=== PATIENT | female | born 1970 | race African-American/Black ===

== ENCOUNTER 2021-03-22 20:41 | Inpatient (IN) | payer MEDICAID ==
[~2021-03-22] VITALS: Ht 167.6 cm; Wt 71.2 kg
[2021-03-22] MEDS ORDERED: LOSA50TA37 PO (20:59)
[2021-03-22] MEDS ORDERED: QUET200T PO (20:59)
[2021-03-22 21:04] LABS: BASOPHILS % (AUTO) 1.1 % (0.0-2.0); EOSINOPHILS % (AUTO) 1.8 % (1.0-6.0); HEMATOCRIT 38.4 % (36-46); HEMOGLOBIN 12.6 g/dL (12.0-16.0); LYMPHOCYTES # (AUTO) 2.6 K/uL (1.0-4.8); LYMPHOCYTES % (AUTO) 35.4 % (22.0-44.0); MEAN CORPUSCULAR VOLUME 85 fL (80-100); MONOCYTES # (AUTO) 0.4 K/uL (0.1-1.0); MONOCYTES % (AUTO) 5.7 % (2.0-9.0); NEUTROPHILS # (AUTO) 4.1 K/uL (1.8-7.7); PLATELET COUNT (AUTO) 373 K/uL (150-450); RED BLOOD CELL COUNT(AUTO) 4.51 MIL/uL (4.00-5.20); RED CELL DISTRIBUTION WIDTH 16.7 % (11.5-14.5)
[2021-03-22 21:14] LABS: ANION GAP 12 mmol/L (8-16); CARBON DIOXIDE 26 mmol/L (22-29); CHLORIDE 105 mmol/L (98-107); CREATININE 0.74 mg/dL (0.60-1.30); GLOMERULAR FILTR. RATE CALC > 60 mL/min (>60); GLUCOSE,RANDOM 73 mg/dL (70-110); POTASSIUM 3.4 mmol/L (3.5-5.1); SODIUM SERUM 143 mmol/L (136-145); UREA NITROGEN, BLOOD 15 mg/dL (7-18)
[2021-03-22 21:16] LABS: PROTHROMBIN TIME 10.6 SEC (9.4-11.6)
[2021-03-22 21:16] LABS: COVID AG,FIA SOURCE NASOPHARYNGEAL
[2021-03-22 21:25] LABS: ALANINE AMINOTRANSFERASE 30 U/L (12-78); ALBUMIN 3.8 g/dL (3.4-5.0); ALKALINE PHOSPHATASE 151 U/L (46-116); ASPARTATE AMINOTRANSFERASE 28 U/L (15-37); BILIRUBIN,TOTAL 0.3 mg/dL (0.1-1.0); HCG,QUANTITATIVE < 1 mIU/mL (0-6); TOTAL PROTEIN, SERUM 7.9 g/dL (6.4-8.2)
[2021-03-22] MEDS ORDERED: LORazepam 1 MG TABLET PO ONE (21:30)
[2021-03-22 21:31] LABS: SALICYLATE 14.5 mg/dL (2.8-20.0)
[2021-03-22 21:38] LABS: ACETAMINOPHEN < 2 mcg/mL (10-30)
[2021-03-23] MEDS: ZOLPIDEM TARTRATE 10 MG TABLET PO PRN ×2 (00:28→00:29)
[2021-03-23 01:00] VITALS: BP 143/87
[2021-03-23] MEDS ORDERED: MAG HYDROX/AL HYDROX/SIMETH ES 30 ML SUSPENSION UDCUP PO PRN (06:30)
[2021-03-23] MEDS ORDERED: ALBUTEROL SULFATE HFA 90 MCG/PUFF 8 GM INHALER IH PRN (06:30)
[2021-03-23] MEDS ORDERED: PETROLATUM,WHITE 28 GM JELLY TP PRN (06:30)
[2021-03-23] MEDS ORDERED: MAGNESIUM HYDROXIDE SUSPENSION 30 ML UDCUP PO PRN (06:30)
[2021-03-23] MEDS ORDERED: OMEPRAZOLE 20 MG CAPSULE PO PRN (06:30)
[2021-03-23] MEDS ORDERED: BENZOCAINE/MENTHOL LOZENGE PO PRN (06:30)
[2021-03-23] MEDS ORDERED: DOCUSATE SODIUM 100 MG CAPSULE PO PRN (06:30)
[2021-03-23] MEDS ORDERED: ONDANSETRON HCL 4 MG TABLET PO PRN (06:30)
[2021-03-23] MEDS ORDERED: CloNIDine HCL 0.1 MG TABLET PO PRN (06:30)
[2021-03-23] MEDS ORDERED: LOPERAMIDE HCL 2 MG CAPSULE PO PRN (06:30)
[2021-03-23] MEDS ORDERED: POTASSIUM CHLORIDE 20 MEQ ER TABLET PO ONE (06:30)
[2021-03-23] MEDS ORDERED: BACITRACIN 28 GM OINTMENT TP PRN (06:30)
[2021-03-23 07:07] LABS: CHOL/HDL RATIO 2.2 (3.9-5.7)
[2021-03-23 08:28] VITALS: BP 148/88
[2021-03-23] MEDS: IBUPROFEN 600 MG TABLET PO PRN (08:30)
[2021-03-23] MEDS: LOSARTAN POTASSIUM 50 MG TABLET PO SCH (09:13)
[2021-03-23] MEDS: HALOPERIDOL 5 MG TABLET PO PRN (09:13)
[2021-03-23] MEDS: LORazepam 2 MG TABLET PO PRN (09:13)
[2021-03-23 17:09] VITALS: BP 117/64
[2021-03-23] MEDS: QUEtiapine FUMARATE 300 MG TABLET PO SCH (20:30)
[2021-03-23] MEDS ORDERED: QUEtiapine FUMARATE 200 MG TABLET PO SCH (21:00)
[2021-03-24 08:36] VITALS: BP 117/57
[2021-03-24] MEDS: LOSARTAN POTASSIUM 50 MG TABLET PO SCH (10:39)
[2021-03-24] MEDS: BuPROPion HCL 150 MG SR TABLET PO SCH (10:39)
[2021-03-24] MEDS: LORazepam 2 MG TABLET PO PRN (12:23)
[2021-03-24] MEDS: IBUPROFEN 600 MG TABLET PO PRN (12:23)
[2021-03-24 16:00] VITALS: BP 92/58
[2021-03-24] MEDS: QUEtiapine FUMARATE 300 MG TABLET PO SCH (20:10)
[2021-03-25 01:21] VITALS: BP 106/65
[2021-03-25] MEDS: IBUPROFEN 600 MG TABLET PO PRN ×2 (01:33→08:40)
[2021-03-25] MEDS: LOSARTAN POTASSIUM 50 MG TABLET PO SCH (08:17)
[2021-03-25] MEDS: BuPROPion HCL 150 MG SR TABLET PO SCH (08:17)
[2021-03-25 08:38] VITALS: BP 92/64
[2021-03-25 09:44] VITALS: BP 103/67
[2021-03-25] MEDS: LORazepam 2 MG TABLET PO PRN (12:53)
[2021-03-25 16:35] VITALS: BP 115/75
[2021-03-25] MEDS: QUEtiapine FUMARATE 300 MG TABLET PO SCH (20:19)
[2021-03-26 08:27] VITALS: BP 115/82
[2021-03-26] MEDS: LOSARTAN POTASSIUM 50 MG TABLET PO SCH (09:28)
[2021-03-26] MEDS: BuPROPion HCL 150 MG SR TABLET PO SCH (09:29)
[2021-03-26] MEDS: IBUPROFEN 600 MG TABLET PO PRN (09:29)
[2021-03-26 16:00] VITALS: BP 98/66
[2021-03-26] MEDS: LORazepam 2 MG TABLET PO PRN (17:03)
[2021-03-26] MEDS: QUEtiapine FUMARATE 300 MG TABLET PO SCH (20:43)
[2021-03-27] MEDS: BuPROPion HCL 150 MG SR TABLET PO SCH (08:14)
[2021-03-27] MEDS: LOSARTAN POTASSIUM 50 MG TABLET PO SCH (08:14)
[2021-03-27 08:39] VITALS: BP 109/65
[2021-03-27] MEDS: IBUPROFEN 600 MG TABLET PO PRN (10:17)
[2021-03-27] MEDS: LORazepam 2 MG TABLET PO PRN ×2 (10:17→18:08)
[2021-03-27 16:00] VITALS: BP 104/65
[2021-03-27 18:08] VITALS: BP 123/65
[2021-03-27 19:08] VITALS: BP 118/69
[2021-03-27] MEDS: QUEtiapine FUMARATE 300 MG TABLET PO SCH (20:23)
[2021-03-28 08:09] VITALS: BP 103/61
[2021-03-28] MEDS: LOSARTAN POTASSIUM 50 MG TABLET PO SCH (09:00)
[2021-03-28] MEDS: LORazepam 2 MG TABLET PO PRN (09:28)
[2021-03-28] MEDS: BuPROPion HCL 150 MG SR TABLET PO SCH (09:29)
[2021-03-28 09:30] VITALS: BP 102/66
[2021-03-28] MEDS: HALOPERIDOL 5 MG TABLET PO PRN (15:35)
[2021-03-28 16:00] VITALS: BP 113/71
[2021-03-28] MEDS: QUEtiapine FUMARATE 300 MG TABLET PO SCH (20:35)
[2021-03-29] MEDS: LOSARTAN POTASSIUM 50 MG TABLET PO SCH (07:59)
[2021-03-29] MEDS: BuPROPion HCL 150 MG SR TABLET PO SCH (07:59)
[2021-03-29 08:31] VITALS: BP 110/61
[2021-03-29] MEDS: LORazepam 2 MG TABLET PO PRN (10:16)
[2021-03-29] MEDS: HALOPERIDOL 5 MG TABLET PO PRN (11:25)
[2021-03-29 16:00] VITALS: BP 106/65
[2021-03-29 19:53] VITALS: BP 110/69
[2021-03-29] MEDS: ACETAMINOPHEN 325 MG TABLET PO PRN (19:53)
[2021-03-29] MEDS: QUEtiapine FUMARATE 300 MG TABLET PO SCH (20:17)
[2021-03-29 20:53] VITALS: BP 110/75
[2021-03-30] MEDS: LORazepam 2 MG TABLET PO PRN ×3 (01:08→18:09)
[2021-03-30] MEDS: FOLIC ACID 1 MG TABLET PO SCH (07:47)
[2021-03-30] MEDS: LOSARTAN POTASSIUM 50 MG TABLET PO SCH (07:47)
[2021-03-30] MEDS: THIAMINE 100 MG TABLET PO SCH (07:47)
[2021-03-30] MEDS: MULTIVITAMINS, THERAPEUTIC TABLET PO SCH (07:47)
[2021-03-30] MEDS: BuPROPion HCL 150 MG SR TABLET PO SCH (07:47)
[2021-03-30] MEDS: QUEtiapine FUMARATE 100 MG TABLET PO SCH (07:47)
[2021-03-30 08:27] VITALS: BP 107/59
[2021-03-30] MEDS: HALOPERIDOL 5 MG TABLET PO PRN (12:28)
[2021-03-30 16:21] VITALS: BP 109/79
[2021-03-30 17:45] VITALS: BP 127/63
[2021-03-30] MEDS: ACETAMINOPHEN 325 MG TABLET PO PRN (17:45)
[2021-03-30 18:09] VITALS: BP 119/71
[2021-03-30 18:45] VITALS: BP 120/63
[2021-03-30 19:09] VITALS: BP 120/63
[2021-03-30] MEDS: QUEtiapine FUMARATE 300 MG TABLET PO SCH (20:15)
[2021-03-31] MEDS: FOLIC ACID 1 MG TABLET PO SCH (09:14)
[2021-03-31] MEDS: THIAMINE 100 MG TABLET PO SCH (09:14)
[2021-03-31] MEDS: LOSARTAN POTASSIUM 50 MG TABLET PO SCH (09:14)
[2021-03-31] MEDS: QUEtiapine FUMARATE 100 MG TABLET PO SCH (09:14)
[2021-03-31] MEDS: BuPROPion HCL 150 MG SR TABLET PO SCH (09:14)
[2021-03-31] MEDS: LORazepam 2 MG TABLET PO PRN ×2 (09:14→16:45)
[2021-03-31] MEDS: MULTIVITAMINS, THERAPEUTIC TABLET PO SCH (09:14)
[2021-03-31 10:33] VITALS: BP 98/60
[2021-03-31 16:40] VITALS: BP 102/65
[2021-03-31] MEDS: HALOPERIDOL 5 MG TABLET PO PRN (16:45)
[2021-03-31] MEDS: QUEtiapine FUMARATE 300 MG TABLET PO SCH (20:09)
[2021-04-01] MEDS: FOLIC ACID 1 MG TABLET PO SCH (08:29)
[2021-04-01] MEDS: MULTIVITAMINS, THERAPEUTIC TABLET PO SCH (08:29)
[2021-04-01] MEDS: BuPROPion HCL 150 MG SR TABLET PO SCH (08:30)
[2021-04-01] MEDS: QUEtiapine FUMARATE 100 MG TABLET PO SCH (08:30)
[2021-04-01] MEDS: THIAMINE 100 MG TABLET PO SCH (08:30)
[2021-04-01] MEDS: LOSARTAN POTASSIUM 50 MG TABLET PO SCH (08:31)
[2021-04-01] MEDS: LORazepam 2 MG TABLET PO PRN (08:33)
[2021-04-01] MEDS: HALOPERIDOL 5 MG TABLET PO PRN (08:33)
[2021-04-01 10:05] VITALS: BP 120/78
[2021-04-01 16:47] VITALS: BP 105/65
[2021-04-01] MEDS: QUEtiapine FUMARATE 300 MG TABLET PO SCH (20:19)
[2021-04-02] MEDS: HALOPERIDOL 5 MG TABLET PO PRN ×2 (00:09→15:03)
[2021-04-02 00:28] VITALS: BP 91/56
[2021-04-02 08:25] VITALS: BP 95/65
[2021-04-02] MEDS: LOSARTAN POTASSIUM 50 MG TABLET PO SCH (09:08)
[2021-04-02] MEDS: QUEtiapine FUMARATE 100 MG TABLET PO SCH (09:08)
[2021-04-02] MEDS: BuPROPion HCL 150 MG SR TABLET PO SCH (09:09)
[2021-04-02] MEDS: THIAMINE 100 MG TABLET PO SCH (09:09)
[2021-04-02] MEDS: FOLIC ACID 1 MG TABLET PO SCH (09:09)
[2021-04-02] MEDS: MULTIVITAMINS, THERAPEUTIC TABLET PO SCH (11:54)
[2021-04-02 12:25] VITALS: BP 95/65
[2021-04-02 16:13] VITALS: BP 100/55
[2021-04-02] MEDS: HydrOXYzine PAMOATE 25 MG CAPSULE PO SCH (16:19)
[2021-04-02 16:55] VITALS: BP 110/64
[2021-04-02] MEDS: IBUPROFEN 600 MG TABLET PO PRN (16:55)
[2021-04-02] MEDS ORDERED: HydrOXYzine PAMOATE 50 MG CAPSULE PO SCH (17:00)
[2021-04-02 18:34] LABS: COVID AG,FIA SOURCE NASOPHARYNGEAL
[2021-04-02] MEDS: QUEtiapine FUMARATE 300 MG TABLET PO SCH (20:37)
[2021-04-03] MEDS: LOSARTAN POTASSIUM 50 MG TABLET PO SCH (09:00)
[2021-04-03] MEDS: THIAMINE 100 MG TABLET PO SCH (09:18)
[2021-04-03] MEDS: BuPROPion HCL 150 MG SR TABLET PO SCH (09:19)
[2021-04-03] MEDS: HydrOXYzine PAMOATE 25 MG CAPSULE PO SCH ×2 (09:19→14:16)
[2021-04-03] MEDS: QUEtiapine FUMARATE 100 MG TABLET PO SCH (09:19)
[2021-04-03] MEDS: FOLIC ACID 1 MG TABLET PO SCH (09:19)
[2021-04-03] MEDS: MULTIVITAMINS, THERAPEUTIC TABLET PO SCH (09:19)
[2021-04-03 09:46] VITALS: BP 87/67
[2021-04-03] MEDS ORDERED: BUPR150SR PO (14:05)
[2021-04-03] MEDS ORDERED: HYDR-4031 PO (14:06)
[2021-04-03] MEDS ORDERED: QUET300T2 PO (14:06)
[2021-04-03] MEDS ORDERED: QUET100T PO (14:06)
[2021-04-03] MEDS ORDERED: LOSA50TA37 PO (14:08)
== END 2021-04-03 14:30 | disposition home or self-care (01) | DRG 754 ==
LOC: EMS 20:41 → 3EI 23:00
PROVIDERS: ADMIT Psychiatry & Neurology Psychiatry; ATTEND Psychiatry & Neurology Psychiatry
DX: F32.9 Major depressive disorder, single episode, unspecified (principal); E87.6 Hypokalemia; F14.90 Cocaine use, unspecified, uncomplicated; F43.10 Post-traumatic stress disorder, unspecified; I10 Essential (primary) hypertension; Z20.822 Contact with and (suspected) exposure to COVID-19; Z59.0 Homelessness; F90.9 Attention-deficit hyperactivity disorder, unspecified type; F17.210 Nicotine dependence, cigarettes, uncomplicated; G47.00 Insomnia, unspecified; F15.10 Other stimulant abuse, uncomplicated
CPT/HCPCS: 80053; 80061; 84132; 84702; 85025; 85610; 93005; 99285; G0480; G0481